=== PATIENT | male | born 1960 | race Caucasian/White ===

== ENCOUNTER → 2023-07-17 02:02 | Outpatient (CLI) | payer OTHER, SELFPAY ==
--- NOTE | 2023-07-17 07:45 | DI.US_ITS ---
APPROVED REPORT EXAM: Comprehensive 2D, Doppler, and color-flow Echocardiogram Patient Location: Out-Patient Paint And Table Edger: Graciela Quiñones RDCS (AE) Indications: New Murmur Other Information Study Quality: Adequate Conclusion Normal left ventricular wall thickness and chamber size. Ejection fraction is 59%. Wall motion is n ormal Normal right ventricular size and systolic function Both atria are normal in size There is no structural or hemodynamically significant valvular disease Estimated right ventricular systolic pressure is 28 mmHg Wall motion Left Ventricle The left ventricle is normal size. The left ventricular systolic function is normal. The left ventric ular ejection fraction is within the normal range. There is normal left ventricular wall thickness. T here is normal LV segmental wall motion. There is no ventricular septal defect visualized. LVEF is 59 %. Right Ventricle The right ventricle is normal size. The right ventricular systolic function is normal. Atria The left atrium size is normal. The right atrium size is normal. The interatrial septum is intact wit h no evidence for an atrial septal defect. Aortic Valve The aortic valve is normal in structure. Aortic valve is trileaflet. No hemodynamically significant v alvular aortic stenosis. No aortic regurgitation is present. Mitral Valve The mitral valve is normal in structure. No evidence of mitral valve stenosis. Trace to mild mitral r egurgitation. Tricuspid Valve The tricuspid valve is normal in structure. There is no tricuspid valve stenosis. Trace tricuspid reg urgitation. The RVSP is 27.9_ mmHg. Pulmonic Valve The pulmonary valve is normal in structure. There is no pulmonic valvular stenosis. Trace pulmonic re gurgitation. Great Vessels The aortic root is normal in size. The ascending aorta is mildly dilated. Aortic arch is normal in ca liber. IVC is normal in size and collapses >50% with inspiration. Pericardium There is no pericardial effusion. 2D Dimensions IVSD d PLAX 0.97 cm M: 0.6-1.2 Ao Root d 3.06 cm M: 3.1 - 3.7 LVPW d PLAX 1.01 cm M: 0.6 - 1.2 Ao Asc Diam d 3.73 cm M: 2.6 - 3.4 LVID d PLAX 4.59 cm M: 4.2 - 5.8 LVDs 3.15 cm M: 2.5 - 4.0 LV EF Teichholz 59.4 % FS 31.46 % LV EDV (Teich) 96.9 mL LV ESV (Teich) 39.3 mL M-Mode TAPSE 3.04 cm (M/F) >1.7 Auto EF LV EDV A4C 145.2 mL LV EDV A2C 144.8 mL LV EDV BP 144.2 mL LV ESV A4C 61.9 mL LV ESV A2C 59.8 mL LV ESV BP 62.0 mL LVEF(%) A4C 57.4 % LVEF(%) A2C 58.7 % LVEF(%) BP 57.0 % LV SV A4C 83.3 ml LV SV A2C 85.0 ml LV SV BP 82.1 ml LV CO A4C 3.6 L/min LV CO A2C 3.7 L/min LV CO BP 3.7 L/min HR A4C 43.47 BPM HR A2C 43.48 BPM LV EDV Index (BP) LA Volume LA Length A4C 5.3 cm LA Length A2C 5.0 cm LA Area A4C s 19.31 cm2 LA Area A2C s 17.56 cm2 LA Vol A4C A-L 59.42 mL LA Vol A2C A-L 52.63 mL LA Vol Biplane A-L 57.9 mL LA Vol/BSA A4C A-L LA Vol/BSA A2C A-L LA Vol/BSA BP A-L 26.1 mL/m2 LA Vol A4C MOD 55.0 mL LA Vol A2C MOD 49.4 mL LA Vol BP MOD 53.3 mL RA Volume RA Area A4C 14.7 cm2 RA ESV A4C (A-L) 34.8mL RA Vol/BSA A4C A-L RA Length A4C 5.3 cm RA ESV A4C (MOD) 32.9mL LV Diastology MV E' medial 0.095 (>0.07 m/s) MV E Vmax 0.98 (0.4-1.3 m/s) MV E/E' MED 10.36 (<14) MV A Vmax 0.90 (0.4-1.3 m/s) MV E' lateral 0.108 (>0.1 m/s) E/A Ratio 1.1 MV E/E' LAT 9.07 (<14) MV E' Average 0.101 m/s MV E/E'(average) 9.67 Aortic Valve AoV Vmax 2.30 m/s LVOT Vmax 1.48 m/s AoV Peak Grad 21.2 mmHg LVOT Peak Grad 8.8 mmHg AoV Area (Vmax) 2.13 cm2 LVOT VTI 0.330 m AoV VTI 0.479 m LVOT Mean Grad 3.6 mmHg AoV Mean Yuan. 1.43 m/s LVOT SV 108.91 mL AoV Mean Grad 9.8 mmHg LVOT Diam s 2.00 cm AoV Area (VTI) 2.27 cm2 Velocity Ratio 0.64 Mitral Valve MV DT 236 (160-240 msec) MV Vmax TIPS 0.93 m/s MV Mean Grad 1.1 (<2mmHg) MV VTI 0.467 m Pulmonary Valve PV Vmax 0.98 (0.5-1.5 m/s) RVOT Vmax 0.77 m/s PV Peak Grad 3.9 mmHg RVOT Peak Gr. 2.4 mmHg PV Mean Yuan 0.68 m/s RVOT VTI 0.182 m PV Mean Grad 2.1 mmHg RVOT Mean Gr. 1.3 mmHg Tricuspid Valve RA Pressure 3.00 mmHg TR Vmax 2.50 m/s TV S' 0.16 m/s TR Peak Grad 24.9 mmHg RVSP (TR) 27.9 mmHg
== END ==
PROVIDERS: PCP Family Medicine; Visit Provider Physical Therapy Assistant
DX: R01.1 Cardiac murmur, unspecified (principal)
CPT/HCPCS: 93306

== ENCOUNTER 2023-08-22 09:43 | Day surgery (SDC) | payer OTHER, SELFPAY ==
--- NOTE | 2023-08-21 19:57 | W.PM.DSUDISC ---
Date of service: 08/22/23 Time of Service: 14:39 Discharge Plan Disposition Patient Disposition: Home Condition: Good Discharge Details Reason For Visit: Screening colonoscopy Attending Provider: Ludin Miramontes Primary Care Provider: Esteban Downey Home Meds and New Rx's Prescriptions: Continued tadalafil 10 mg tablet 10 mg PO DAILY PRN Rx Instructions: administer approximately 30min before sexual activity; do not use more than 1 dose per 24hrs Discontinued bisacodyl [Dulcolax (bisacodyl)] 5 mg tablet,delayed release (DR/EC) 5 mg PO ONCE Qty: 4 0RF Rx Instructions: Take per colonoscopy instructions provided by ordering providers office polyethylene glycol 3350 17 gram/dose powder 17 g PO ONCE Qty: 238 0RF Rx Instructions: Take per colonoscopy instructions provided by ordering providers office Discharge Instructions Instructions: Colorectal Polyps (GEN) Additional Instructions: Edil, we are able to complete your colonoscopy today without any difficulty. I did find 2 polyps. I removed these both completely. Once I have the results of the pathology report, I will be in touch with my recommendations for your next colonoscopy. If you have any questions at all in the meantime, please do not hesitate to call. 1. If tolerated, consume a soft, low fiber diet for 1-2 days. 2. Do not drive, drink alcohol, operate machinery, make critical decisions, or do activities that require coordination or balance for 24 hours. 3. Because air was put into your colon during the procedure, expelling air from your rectum (passing gas or farting) is normal. 4. You may not have a bowel movement for 1-3 days because of the colonoscopy prep. This is normal. 5. Go directly to the emergency room if you notice any of the following: Develop chills (warm to touch), or if you have a thermometer and your temperature is above 101 Difficulty breathing or difficultly swallowing Persistent vomiting Severe abdominal pain, other than gas cramps Severe chest pain Black, tarry stools Any bleeding ? exceeding one tablespoon 6. Call your physician if the site where your intravenous was started becomes red, swollen, painful, and warm to touch. 7. Your physician has reviewed your pre-procedure medications. Please continue to take those medications as previously ordered. You will be given specific information/education regarding any changes to your medications before leaving. Activity:: Activity as Tolerated Diet:: As Tolerated Discharge Orders Discharge Orders: Discharge Order (Routine); Ordered 08/21/23 Ordered By: Ludin Miramontes DS: Diagnosis Discharge Diagnosis (1) Screen for colon cancer: Status: Acute Asessment and Plan: Follow-up on polypectomy results
--- NOTE | 2023-08-21 20:00 | COLE_ITS ---
Date of service: 08/22/23 Time of Service: 14:39 Colonoscopy Report Date of procedure: 08/22/23 Pre-op diagnosis general: Screening colonoscopy Procedure: Colonoscopy with polypectomy Surgeon: Ludin Miramontes Anesthesia Type: General:No Airway Estimated blood loss (mL): 5 Pathology: other (Cecal polyp, polyp at 120 cm) Complications: None Disposition: same day Indications: Edil is a 62 year old man who needs a screening colonocsopy Prep: Miralax/Dulcolax Procedure Start Time: 14:02 Procedure End Time: 14:29 Retraction Time: 19 Findings: 0.5 cm cecal polyp, 0.5 cm polyp at 120 cm Procedure Description: After the induction of monitored anesthetic care, and with the patient in left lateral decubitus position, I began by performing an external anorectal exam.? Perineum and skin were normal, as was the anal verge.? There was no evidence of external hemorrhoids.? Next, I performed a digital rectal exam.? I did not appreciate any abnormal findings.? Next, I advanced a colonoscope into the rectal vault.? I performed retroflexion.? This appeared normal.? Using insufflation, I then advanced the colonoscope beyond the rectal folds and into the sigmoid colon before advancing towards the cecum.? The scope was noted to be in the cecum by identification of the ileocecal valve and appendiceal orifice.? I then began withdrawing the colonoscope using repeated irrigation as necessary for full evaluation of the colonic mucosa. Within the upper portion of the cecum was a 0.5 cm polyp. It was sessile in nature. I removed it with cold forceps polypectomy. Around 120 cm from the anal verge I identified a 0.5 cm polyp. ?It appeared to in character. ?I was able to remove this with a cold forceps. ?I examined the site, and there was minimal bleeding. ?Once this was completed, I continued to withdraw the scope and examine the remainder of the colonic mucosa. Once the scope was withdrawn to the level of the rectum, great care was taken to examine portions of the rectal folds.? Finally, the scope was withdrawn and the patient was brought to the same-day surgery recovery unit as the anesthetic wore off. ?The findings and instructions were shared with the patient prior to discharge. Tie Siding Bowel Prep Tie Siding Bowel Prep Right Colon: 3 Left Colon: 2 Transverse Colon: 3 Total Score: 8
[2023-08-22 10:32] VITALS: BP 120/78; PULSE 50; RESP 18; TEMP 36.4; O2SAT 97
[2023-08-22] MEDS: Lactated Ringers 1,000 ML 80 ML IV (11:00)
--- NOTE | 2023-08-22 12:14 | W.ANESPRE ---
General Info Date of Service Date Performed: 08/22/23 Height: 5 ft 11 in Weight: 99.9 kg Body Mass Index (BMI): 30.7 Surgical Procedure: Operation Date: 08/22/23 12:35 Proposed Procedure Side Surgeon p Yareli Miramontes MD Meds Allergies and Home Medications Allergies Allergy/AdvReac Type Severity Reaction Status Date / Time No Known Allergies Allergy Unverified 08/22/23 10:30 Home Medication Medication Instructions Recorded tadalafil 10 mg tablet 10 mg PO DAILY PRN 02/21/23 Current Visit Medications: Current Medications Generic Name Dose Route Start Last Admin Trade Name Freq PRN Reason Stop Dose Admin Hyoscyamine Sulfate 0.125 mg 08/21/23 20:02 Hyoscyamine 0.125 Mg Sl/Oral/Chew SL 09/20/23 20:01 DIRECTED PRN Ringer's Solution 1,000 mls @ 80 mls/hr 08/22/23 06:00 08/22/23 11:00 IV 08/22/23 23:59 80 mls/hr INFUSION BRO Administration IV Miscellaneous Supplies 1 each 08/22/23 06:00 Iv Access IV 08/22/23 23:59 DIRECTED BRO Ondansetron HCl 4 mg 08/21/23 20:02 Ondansetron 4 Mg/2 Ml Vial IVP 09/20/23 20:01 Q4H PRN PRN Nausea / Vomiting Sodium Chloride 0 ml 08/22/23 06:00 Normal Saline Flush 10 Ml Syr IV 08/22/23 23:59 PRN PRN Sodium Chloride 0 ml 08/22/23 06:00 Normal Saline 10 Ml Vial IJ 08/22/23 23:59 DIRECTED PRN Sterile Water 0 ml 08/22/23 06:00 Water,Injection,Sterile 10 Ml Vial IJ 08/22/23 23:59 DIRECTED PRN PFSH Active Problems Active Problems: Problem Status Onset Code Screen for colon cancer Z12.11 Murmur, cardiac R01.1 Chronic lower back pain M54.50, G89.29 Erectile dysfunction N52.9 Medical History Medical History History of TB (tuberculosis) 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5 Tobacco Smoking/Tobacco Use Status: Never Alcohol Alcohol Intake: current Alcohol intake frequency: a few times a week Alcohol type: beer and wine Substance Use Substance use: Never Substance use type: does not use Vital Signs and Lab Results Vital Signs Most Recent Vital Signs in EMR: Most Recent Vital Signs Temp Pulse Resp BP Pulse Ox 36.4 C L 50 L 18 120/78 97 08/22/23 10:32 08/22/23 10:32 08/22/23 10:32 08/22/23 10:32 08/22/23 10:32 Lab Results Blood Type / Crossmatch: No Data to Display Complete Blood Count: No Data to Display Complete Metabolic Panel: No Data to Display Liver Function Panel: No Data to Display Coagulation Panel: No Data to Display Cardiac Panel: No Data to Display Arterial Blood Gas: No Data to Display Venous Blood Gas: No Data to Display Pancreas Panel: No Data to Display Thyroid Panel: No Data to Display Infectious Disease: No Data to Display Blood Cultures: No Data to Display Toxicology Panel: No Data to Display Imaging and Studies Imaging and Studies Study information below may be from another EMR and interpreted by another provider. Please see original notes in EMR for more complete details. Echocardiogram Summary: Indications: New Murmur Other Information Study Quality: Adequate Conclusion Normal left ventricular wall thickness and chamber size. Ejection fraction is 59%. Wall motion is normal Normal right ventricular size and systolic function Both atria are normal in size There is no structural or hemodynamically significant valvular disease Estimated right ventricular systolic pressure is 28 mmHg Anesthesia Assessment and Plan Anesthesia History Personal History: No History of Anesthesia Complications Family History: No Family History of Anesthesia Complications and Other Exercise Tolerance Exercise Tolerance: Metabolic Equivalents>4 Pertinent Negatives Pertinent Negatives: No Symptoms of GERD, No Major Cardiovascular Symptoms or Complaints, No Major Pulmonary Symptoms or Complaints and No History of CVA/TIA Cardiac & Pulmonary Exam Cardiac Exam: Normal S1/S2 Heart Sounds Pulmonary Exam: Clear Bilateral Breath Sounds Implantable Cardiac Device Does patient have a Pacemaker or an ICD?: No Airway Exam Known Difficult Airway: No Mallampati Class: 3 Mouth Opening: Normal (> 3cm) Thyromental Distance: Greater than 3 cm Neck Range of Motion: Full ROM Neck Circumference: Normal Teeth Condition: Normal Dentition ASA Classification ASA Score: ASA 2 Emergency Case?: No NPO Status NPO Status: NPO Clears >2 hours, Solids >8 hours Anesthesia Plan Resuscitation Status: Full Code Anesthesia Technique: General Anesthesia Airway Planned: Natural Airway Monitors Used: Standard Monitors
[2023-08-22 12:19] VITALS: BMI 30.7
--- NOTE | 2023-08-22 13:18 | HPE_ITS ---
Assessment and Plan Assessment and plan (1) Screen for colon cancer: Status: Acute Assessment and plan: We reviewed the plan for screening colonoscopy today, as well as the risks and benefits of the procedure. I think he has a great understanding of this. I see no contraindications to proceeding as planned History of Present Illness History of Present Illness Chief Complaint: Screening colonoscopy Narrative: 62 y/o male with history of TB and chronic low back pain presents for colonoscopy screening pre-op. He describes that he had 2 previous Colonoscopy's in [place] which he states were normal. He denies a family history of colon cancer. He denies any changes in bowel habits including bloody or black tarry stools, a bdominal pain, diarrhea or constipation. Of note he describes having more frequent abdominal bloating. He denies constitutional symptoms. He denies chest pain, palpitations, dyspnea or dyspnea with exertion. He denies prior history or family history of adverse reactions or complications with anesthesia. The patient denies any history of stroke, VA, seizures, bleeding or clotting disorders. He denies having any implanted metal in his body. Edil has had no significant interval history changes since his last office visit. PFSH All Active Problems Screen for colon cancer (Acute) Murmur, cardiac (Acute) Chronic lower back pain (Chronic) Erectile dysfunction (Acute) Medical History History of TB (tuberculosis) Age 5 Social History Smoking/Tobacco Use Status: Never Smoking risk assessment performed?: Yes Alcohol Intake: current Alcohol Intake frequency: a few times a week Alcohol type: beer and wine Drug use: Never Substance use type: does not use Housing: house Do you feel safe at home: Yes Do you feel safe in your relationship?: Yes Meds Allergies and Home Medications Allergies Allergy/AdvReac Type Severity Reaction Status Date / Time No Known Allergies Allergy Unverified 08/22/23 10:30 Home Medications Medication Instructions Recorded Confirmed Type tadalafil 10 mg tablet 10 mg PO DAILY PRN 02/21/23 08/22/23 History Exam Const General: cooperative, healthy appearing and not in acute distress Neck Neck: normal visual inspection, no lymphadenopathy and supple Resp Effort & Inspection: normal respiratory effort Auscultation: clear to auscultation bilaterally Cardio Jugular venous pressure: no JVD Rate: regular rate Rhythm: regular rhythm Heart Sounds: S1 normal and S2 normal GI Inspection: normal to inspection Palpation: soft, no guarding, no hernias and nontender Percussion: normal to percussion Auscultation: normal bowel sounds Neuro General: patient alert, patient awake and patient oriented x3 Psych Appearance: grossly normal Results Last Vital Signs Temp 97.5 F L 08/22/23 10:32 Pulse 50 L 08/22/23 10:32 Resp 18 08/22/23 10:32 BP 120/78 08/22/23 10:32 Pulse Ox 97 08/22/23 10:32
--- NOTE | 2023-08-22 14:15 | BOWEL_PTH ---
PATIENT: Edil Willis LOC: [facility] U#:[id number] AGE/SX: 62/M ROOM: RE08/22/[address]: Ludin Miramontes MD : [id number] BED: DIS: 08/22/2023 SPEC #: [id number] RECD: 08/22/23 16:21 STATUS: SUSANA RE #: [id number] TEZ: 08/22/23 14:[address]: Ludin Miramontes DEPT: Surgical Specimen RECD BY: Marielle Pate ENTERED: 08/22/23 16:22 SP TYPE: Bowel OTHR DR: Esteban Downey Tissues: 1 - BIOPSY BOWEL 2 - BIOPSY BOWEL Procedures: GROSS AND MICRO LEVEL 4 Comments: [id number]
[2023-08-22 14:39] VITALS: BP 109/70; PULSE 50; RESP 18; TEMP 36.7; O2SAT 97
--- NOTE | 2023-08-22 15:01 | W.ANESPOSTOP ---
Postoperative Evaluation Date, Time and Location Date Performed: 08/22/23 Time Performed: 14:44 Patient Location: Day Surgery Unit Vital Signs Most Recent Imported Vital Signs: Most Recent Vital Signs Temp Pulse Resp BP Pulse Ox 36.7 C 50 L 18 109/70 97 08/22/23 14:39 08/22/23 14:39 08/22/23 14:39 08/22/23 14:39 08/22/23 14:39 Pain Score Most Recent Pain Score: Most Recent Pain Score Pain Level 0 08/22/23 14:39 Assessment Mental Status: Awake (Alert & Oriented to Patient Baseline) Airway and Respiratory Function: Patent airway with normal (patient baseline) respiratory exam Cardiovascular Function: Hemodynamically Stable Hydration Status: Adequately Hydrated Nausea & Vomiting: No Nausea or Vomiting Pain: Pt. Denies Any Pain Peripheral Nerve Block: Patient did not receive a nerve block
[2023-08-22 15:11] VITALS: BP 109/70; PULSE 53; RESP 20; TEMP 36.5; O2SAT 96
== END 2023-08-22 15:55 | disposition home or self-care (01) ==
LOC: SUR 09:44
PROVIDERS: PCP Family Medicine; Visit Provider Surgery
PROC: 0DJD8ZZ Inspection of Lower Intestinal Tract, Via Natural or Artificial Opening Endoscopic (ICD-10-PCS; CPT 45378; principal; 2023-08-22 12:30)
DX: Z12.11 Encounter for screening for malignant neoplasm of colon (principal); D12.0 Benign neoplasm of cecum; D12.3 Benign neoplasm of transverse colon
CPT/HCPCS: 45380; 88305; J2001

== ENCOUNTER 2023-08-22 18:19 | Day surgery (SDC) | payer OTHER, SELFPAY | END 2023-08-22 18:20 | disposition home or self-care (01) | LOC: SUR 18:19 | PROVIDERS: PCP Family Medicine; Visit Provider Surgery ==

== ENCOUNTER 2023-09-25 13:21 | Outpatient (REF) | payer OTHER, SELFPAY ==
[2023-09-25 16:43] LABS: Anion Gap 9.1 mmol/L (3-11); BUN 13 mg/dL (7-18); CO2 26.9 mmol/L (21.0-32.0); CREATININE 0.8 mg/dL (0.70-1.30); Calcium 9.1 mg/dL (8.5-10.1); Calculated LDL 138 mg/dL (<100); Chloride 107 mmol/L (98-107); Cholesterol 203 mg/dL (<200); Estimated GFR 100.06 (mL/min/1.73m2); Glucose 104 mg/dL (74-106); HDL Cholesterol 52 mg/dL (40-60); Potassium 4.1 mmol/L (3.5-5.1); Sodium 143 mmol/L (136-145); Triglyceride 67 mg/dL (<150)
== END 2023-09-25 13:22 | disposition home or self-care (01) ==
LOC: NCHCN 13:21
PROVIDERS: PCP Family Medicine; Visit Provider Family Medicine
DX: Z00.00 Encounter for general adult medical examination without abnormal findings (principal)
CPT/HCPCS: 80048; 80061

== ENCOUNTER → 2023-10-06 01:23 | Outpatient (CLI) | payer OTHER, SELFPAY ==
--- NOTE | 2023-10-06 | DI.RAD_ITS ---
Exam(s) XR KNEE RT 3V AP,LAT,MIGUEL ANGEL EXAM: XR KNEE RT 3V AP,LAT,MIGUEL ANGEL CLINICAL HISTORY: M25.561 Pain in right knee. TECHNIQUE: 2D digital imaging was performed. Three views. COMPARISON: No exams were available for comparison FINDINGS: BONES: No acute fracture is present. No bony destructive lesion is seen. JOINTS: The knee is normally aligned. No joint effusion is seen. Mild narrowing medial femoral tibial joint. Chondrocalcinosis. SOFT TISSUE: Normal. IMPRESSION: Degenerative changes of the medial femoral tibial joint. Chondrocalcinosis. DATA REPOSITORY: RADIATION DOSE DELIVERED:
== END ==
PROVIDERS: PCP Family Medicine; Visit Provider Family Medicine
DX: M17.11 Unilateral primary osteoarthritis, right knee (principal); M11.261 Other chondrocalcinosis, right knee
CPT/HCPCS: 73562

== ENCOUNTER 2024-09-28 10:09 | Outpatient (REF) | payer OTHER, SELFPAY ==
[2024-09-28 16:17] LABS: ALT 45 U/L (16-63); AST 31 U/L (15-37); Albumin 4.2 g/dL (3.4-5.0); Alkaline Phosphatase 48 U/L (46-116); Anion Gap 11.3 mmol/L (3-11); BUN 12 mg/dL (7-18); Bilirubin, Total 0.63 mg/dL (0.2-1.0); CO2 27.7 mmol/L (21.0-32.0); CREATININE 0.9 mg/dL (0.70-1.30); Calcium 9.2 mg/dL (8.5-10.1); Calculated LDL 148 mg/dL (<100); Chloride 107 mmol/L (98-107); Cholesterol 223 mg/dL (<200); Estimated GFR 95.97 (mL/min/1.73m2); Glucose 97 mg/dL (74-106); HDL Cholesterol 56 mg/dL (40-60); Potassium 4.3 mmol/L (3.5-5.1); Sodium 146 mmol/L (136-145); Total Protein 6.9 g/dL (6.4-8.2); Triglyceride 95 mg/dL (<150)
== END 2024-09-28 10:10 | disposition home or self-care (01) ==
LOC: NCHCN 10:09
PROVIDERS: PCP Family Medicine; Visit Provider Family Medicine
DX: Z00.00 Encounter for general adult medical examination without abnormal findings (principal); E78.5 Hyperlipidemia, unspecified
CPT/HCPCS: 80053; 80061